=== PATIENT | female | born 1980 | race American Indian/Alaskan Native ===

== ENCOUNTER 2021-05-02 20:03 | Emergency (ER) | payer OTHER ==
--- NOTE | 2021-05-02 23:15 | Emergency Department Report ---
ED General Adult HPI - General Chief complaint: Chest Pain Stated complaint: CHEST PAIN x 4 DAYS Time Seen by Provider: 05/02/21 23:09 Source: patient Mode of arrival: Ambulatory Limitations: No Limitations - History of Present Illness Initial comments: 40 y/o female pt presents to ED w/ complaints of "sharp" right sided chest pain, worse with movement/coughing/sneezing/deep inhalation/right upper extremity movement with associated dyspnea starting four days ago. Pain is exacerbated by the aforementioned movements but remains present at rest. Pain is relieved with lying supine. No history of similar symptoms. Patient was taking estrogen/progesterone OCP's until last week. No history of diabetes, hypertension, hyperlipidemia. No tobacco use. No family history of early heart disease. Denies fever, chills, palpitations, syncope, vomiting, lower extremity pain/swelling. Denies all other complaints at this time. - Related Data Allergies Allergy/AdvReac Type Severity Reaction Status Date / Time No Known Allergies Allergy Verified 05/02/21 21:57 ED Review of Systems ROS: Stated complaint: CHEST PAIN x 4 DAYS Other details as noted in HPI Other: GENERAL: Negative for fever, chills, weight change, anorexia, fatigue. ENT: Negative for ear pain, difficulty hearing, sore throat, nasal congestion, epistaxis. CARDIOVASCULAR: Positive for chest pain. PULMONARY: Positive for shortness of breath. GASTROINTESTINAL: Negative for abdominal pain, nausea, vomiting, diarrhea, constipation. MUSCULOSKELETAL: Negative for joint pain, joint swelling, myalgias, back pain, neck pain. NEUROLOGICAL: Negative for headache, seizure, syncope, paresthesias, weakness. INTEGUMENTARY: Negative for erythema, rash, diaphoresis, laceration, ecchymosis. HEMATOLOGICAL: Negative for hemoptysis, hematemesis, hematochezia, hematuria. PSYCHIATRIC: Negative for hallucinations, suicidal ideation, homicidal ideation, anxiety, depression. ED Past Medical Hx - Past Medical History Previous Medical History?: No - Surgical History Additional Surgical History: ED Physical Exam - General Limitations: No Limitations - Other Other exam information: General: Awake and alert. No acute distress. Head: Atraumatic, normocephalic. Eyes: EOMI. Pupils are equal and round. Normal sclera and conjunctiva. ENT: Oral mucosa is moist. Normal pharyngeal exam. Neck: Supple. No lymphadenopathy. Pulmonary: No respiratory distress. Clear to auscultation bilaterally. Right anterior chest wall pain reproducible with palpation and deep inhalation. Cardiac: Regular rate and rhythm. Pulses are palpable and equal bilaterally. No lower extremity cyanosis or edema. Skin: Warm and dry. No rashes. Abdomen: Soft, non-tender, non-protuberant. No guarding, rigidity, or rebound. Bowel sounds are normal. No organomegaly or masses noted. Back: Normal alignment. No CVA tenderness. Extremities: Symmetrical. Full range of motion intact. Neurological: Alert and oriented, appropriately interactive, no focal deficits. Psych: Cooperative. Appropriate mood and affect. Speech is evenly metered. Thoughts are logically construed. ED Course Vital Signs 05/02/21 21:58 Temperature 98.4 F Pulse Rate 89 Respiratory 18 Rate Blood Pressure 149/103 [Right] O2 Sat by Pulse 100 Oximetry ED Medical Decision Making - Lab Data Result diagrams: 05/02/21 23:17 05/02/21 23:17 - EKG Data 05/02/21 23:15 EKG shows normal sinus rhythm with a ventricular rate of 76 bpm. Normal axis. Normal ID interval. Normal QT interval. Poor R wave progression. No ST segment changes. Over read by attending emergency physician, who agrees with this interpretation. - Medical Decision Making Differential diagnosis including but not limited to: acute coronary syndrome, pericarditis, pericardial effusion/cardiac tamponade, pulmonary embolism, pneumothorax, pneumonia, pleural effusion Patient is not an appropriate candidate for clinical rule-out per PERC criteria due to exogenous estrogen use. On re-evaluation, patient remains stable. No hypoxia, no respiratory distress. Pain is controlled. EKG without acute injury pattern. Labs are unremarkable except for elevated D-Dimer. CTA of the chest without acute process. Exceedingly low clinical suspicion for ACS due to reproducible nature of right-sided chest pain in the absence of cardiac risk factors. Chest pain has been present for several days, repeat troponin is not clinically indicated. History and exam findings suggestive of musculoskeletal chest wall pain. No clinically indication for further diagnostic work-up on an emergent basis at this time. Patient will be discharged home with PCP referral for close outpatient follow-up. Patient expressed understanding and is agreeable to plan of care. Lifestyle m odifications discussed. Strict return precautions provided. Repeat exam is unremarkable and benign. History, exam, diagnostic testing, and current condition do not suggest worrisome pathology to warrant further testing, continued ED treatment, admission, or surgical evaluation at this point. Given the low probability of a significant medical illness, it would be more likely to result in harm than benefit to perform further testing at this stage. Discussed findings, presumptive diagnosis, need for follow-up and specific signs/symptoms that should prompt immediate return to the emergency department. Instructions were explained in detail to the patient in addition to giving written discharge information. Patient expressed understanding and was given the opportunity to ask questions, all of which were satisfactorily answered prior to discharge home. Critical care attestation.: If time is entered above; I have spent that time in minutes in the direct care of this critically ill patient, excluding procedure time. ED Disposition Clinical Impression: Nonspecific chest pain Disposition: HOME / SELF CARE / HOMELESS Is pt being admited?: No Does the pt Need Aspirin: No Condition: Stable Instructions: Nonspecific Chest Pain, Adult Additional Instructions: Take Tylenol every 4 hours and Motrin every 8 hours as needed for pain. Gradually advance physical activity slowly as tolerated. Follow up with primary care provider this week. Call tomorrow to schedule an appointment. See referral information below. Return to the emergency department for new or worsening symptoms. Referrals: KAIDEN BECERRA MD [Staff Physician] - 3-5 Days [facility] [Provider Group] - 3-5 Days Forms: Work/School Release Form(ED) Time of Disposition: 01:24
[2021-05-02 23:44] LABS: Basophils # (Auto) 0.1 K/mm3 (0.0-0.1); Basophils % (Auto) 1.3 % (0.0-1.8); Eosinophils # (Auto) 0.1 K/mm3 (0.0-0.4); Eosinophils % (Auto) 0.9 % (0.0-4.3); Hematocrit 38.5 % (30.3-42.9); Hemoglobin 12.6 gm/dl (10.1-14.3); Lymphocytes # (Auto) 2.9 K/mm3 (1.2-5.4); Lymphocytes % (Auto) 37.6 % (13.4-35.0); Mean Corpuscular HGB Conc 33 % (30-34); Mean Corpuscular Volume 90 fl (79-97); Monocytes # (Auto) 0.7 K/mm3 (0.0-0.8); Monocytes % (Auto) 8.9 % (0.0-7.3); Platelet Count 311 K/mm3 (140-440); Red Blood Count 4.28 M/mm3 (3.65-5.03); Red Cell Distribution Width 14.6 % (13.2-15.2)
[2021-05-02 23:54] LABS: Alanine Aminotransferase 8 units/L (7-56); BUN/Creatinine Ratio 14; Blood Urea Nitrogen 11 mg/dL (7-17); Hemolysis Index 7
--- NOTE | 2021-05-03 00:20 | XRay Report ---
CHEST PA AND LATERAL VIEWS INDICATION: chest pain. COMPARISON: None. FINDINGS: Support devices: None. Heart: Within normal limits. Lungs/Pleura: No acute pulmonary or pleural findings. IMPRESSION: 1. No acute findings. Signer Name: Maximo Marshall MD Signed: 05/03/2021 12:15 AM Workstation Name: [email or web address]
--- NOTE | 2021-05-03 01:15 | Cat Scan Report ---
CTA CHEST WITH IV CONTRAST INDICATION: Pleuritic chest pain, elevated D-Dimer. TECHNIQUE: Axial CT images were obtained through the chest after injection of IV contrast. 3 plane MIP reconstru ctions were produced. All CT scans at this location are performed using CT dose reduction for ALARA b y means of automated exposure control. COMPARISON: None available. FINDINGS: Pulmonary Arteries: No pulmonary emboli. Thoracic Aorta: No acute abnormality. Heart: Normal. Lungs: No acute air space or interstitial disease. Pleura: No pleural effusion. No pneumothorax. Lymph Nodes: No significant adenopathy. Additional Findings: None. Upper Abdomen: No acute findings. The gallbladder is contracted. Skeletal Structures: No significant osseous abnormality. IMPRESSION: 1. No CT evidence for pulmonary embolism. 2. No acute findings. Signer Name: Maximo Marshall MD Signed: 05/03/2021 1:10 AM Workstation Name: [email or web address]
[2021-05-03 02:33] VITALS: BP 162/90
--- NOTE | 2021-05-04 10:56 | Electrocardiograph Report ---
[facility] Test Date: 2021-05-02 Test Time: 22:09:28 Pat Name: MAINOR RODRIGUEZ Department: Room: Gender: F Rag Sorter: EMILIE : 1980 Requested By: ZEE QUESADA Order Number: [id number] Reading MD: Ren Love Measurements Intervals Ransom Rate: 76 P: 71 MN: 157 QRS: 41 QRSD: 87 T: 38 QT: 377 QTc: 424 Interpretive Statements Sinus rhythm Probable left atrial enlargement Anterior infarct, age indeterminate No previous ECG available for comparison Electronically Signed On 05-04-2021 10:55:19 EDT by Ren Love
== END 2021-05-03 02:35 | disposition home or self-care (01) ==
LOC: ED 20:03
DX: R07.89 Other chest pain (principal); Z98.890 Other specified postprocedural states
CPT/HCPCS: 36415; 71046; 71275; 80053; 83735; 84484; 84703; 85025; 85379; 93005; 99284; Q9967